=== PATIENT | male | born 2000 | race Caucasian/White ===

== ENCOUNTER 2023-03-23 06:22 | Day surgery (SDC) | payer OTHER, MEDICAID, SELFPAY ==
[2023-03-23] VITALS (13 sets, daily range): BP systolic 124–152; BP diastolic 80–109; PULSE 60–75; RESP 10–16; TEMP 36.6–37.1; O2SAT 96–100; BMI 24.7
[2023-03-23] MEDS: LACTATED RINGERS 1000 ML 1,000 ML 100 ML IV (06:15)
--- NOTE | 2023-03-23 07:34 | P.GSOP_ITS ---
Operative Note Pre-op diagnosis: 1. Symptomatic right inguinal hernia. Post-op diagnosis: 1. Right indirect inguinal hernia. Type of Procedure: 1. Open right inguinal hernia repair with mesh. Indications: 22-year-old male was seen in clinic for evaluation of right inguinal hernia that was initially noticed 2 years ago. Patient had a lot of pain when it was initially noticed but then pain subsequently resolved. Patient was recently working in a construction job and noticed a bulge in the right side. He complained of pain at the bulge with strenuous activity and heavy lifting. The bulge was out daily but was reducible. Patient also complained of feeling of intestine sticking in the bulge. On clinical exam with the patient standing up there is a right inguinal hernia extending to the superior right hemiscrotum. This is reducible and small intestine was palpated with reducing the hernia. Given patient's clinical history and his physical exam, an open right inguinal h ernia repair was recommended. The procedure was discussed in detail. The risks associated procedure including infection, bleeding, nerve pain and nerve injury, and hernia recurrence were all discussed with the patient, and he agreed to proceed. Procedure Description: After discussing the risks and benefits of the procedure, the patient signed informed consent.? The operative site was marked and the patient was brought to the operating room and placed on the operating table in supine position.? Care was taken to pad the patient's pressure points.?? The patient was then intubated by anesthesia.?? The operative site was then prepped and draped in the usual sterile fashion.? A time-out was then performed. Surgical site was prepped and draped in sterile fashion. Site of the incision was marked with a marking pen and local anesthetic was injected. An oblique incision was made just above and medial to The right inguinal ligament. Subcutaneous tissue was dissected to external obliques. Superficial subcutaneous vascular branches were clamped, divided and tied with 3-0 Vicryl ties. Small incision was made through the external oblique aponeurosis with scalpel. I then used Metzenbaum scissors to dissect under external obliques and extend my incision. Mosquito clamps were placed on the edges of external oblique exposing the inguinal floor. The right Ilioinguinal nerve was identified and was going through the plain of dissection. The nerve was divided. I then identified the spermatic cord and the hernia sac. I bluntly dissected gayle bcutaneous tissues in order to place Jermaine drain around the cord structures. The hernia sac was tightly adherent to the spermatic cord with dense adhesions. Lysis of adhesions and mobilizing the hernia sac of the spermatic cord took over 1 hour. This was done bluntly and with cautery. Cremasteric fibers were peeled off and dissected off the hernia sac and cord structures. This was an indirect hernia. The hernia sac was from the spermatic cord bluntly and with cautery. The indirect hernia sac was incised and examined from the inside. The patent processes vaginalis was coursing towards the testicle. The testicle was pulled into the field and the processes vaginalis was opened with cautery. Only small amount of hydrocele fluid was noted to surround the testicle. The testicle and epididymis was then reduced into the right hemiscrotum. The hernia sac was examined from the inside and no intraabdominal organs were incarcerated in the hernia sac. A stitch using 3-0 Vicryl was placed near the base of the hernia sac through the sac and the hernia sac tied off. Hernia sac was then excised and not sent to pathology. This was then pushed into preperitoneal space through the internal ring. Surgical field was examined for bleeding and hemostasis was achieved with cautery and Vicryl ties. A Bard mesh onlay was also used for hernia repair. The mesh onlay was sutured in place with interrupted 0-0 Neurolon sutures to the conjoint tendon medially and shelving edge laterally, pubic tubercle inferiorly. Simple interrupted sutures were placed using 0-0 Neurolon at the base of internal inguinal ring making it only large enough to fit a tip of one finger through. Spermatic cord was placed back into scrotum. [place] drain was removed. External oblique aponeurosis was closed with a running 3-0 Vicryl. Additional local anesthetic was injected into subcutaneous tissues. Destin's fascia and subcutaneous tissue was re-approximated with interrupted Vicryl stitches. Skin incision was closed with 4-0 Monocryl subcuticular stitch. Steri strips and sterile dressing were applied over incision. All counts were correct at the end of the case. Patient tolerated this procedure well and was transferred to PACU in stable condition. Findings: Indirect hernia. Anesthesia: GETA Surgeon: Parminder Maradiaga MD Estimated blood loss (mL): 10 Condition: stable Disposition: PACU Date of procedure: 03/23/23
[2023-03-23] MEDS: CEFAZOLIN 1 GM inj IVP (07:35)
[2023-03-23] MEDS: BUPIVACAINE 0.25% 30 ML INJECTION (09:37)
--- NOTE | 2023-03-23 09:50 | W.ANESCHARGE ---
Anesthesia Charges Start Date/Time Anesthesia Start Date: 03/23/23 Anesthesia Start Time: 07:30 Stop Date/Time Anesthesia Stop Date: 03/23/23 Anesthesia Stop Time: 09:50
[2023-03-23] MEDS: fentaNYL 100 MCG/2 ML inj 50 MCG IVP ×2 (09:57→10:25)
[2023-03-23] MEDS: HYDROCODONE-ACETAMIN 5-325 MG 1 TAB PO (11:00)
== END 2023-03-23 13:51 | disposition home or self-care (01) ==
PROVIDERS: PCP Family Medicine; Visit Provider Surgery
PROC: (CPT 49505; principal; 2023-03-23 07:30)
DX: K40.90 Unilateral inguinal hernia, without obstruction or gangrene, not specified as recurrent (principal)
CPT/HCPCS: 49505; 00830; A9270; C1713; C1781; J0330; J0665; J0690; J1100; J1885; J2405; J2704; J2710; J3010; J3490; J7120

== ENCOUNTER 2023-06-16 11:55 | Outpatient (CLI) | payer OTHER, MEDICAID, SELFPAY | END 2023-06-16 11:56 | disposition home or self-care (01) | PROVIDERS: PCP Family Medicine; Visit Provider Family Medicine | DX: R03.0 Elevated blood-pressure reading, without diagnosis of hypertension (principal); R53.83 Other fatigue | CPT/HCPCS: 80053; 80061; 84443 ==